=== PATIENT | male | born 1990 | race Two or more races ===

== ENCOUNTER 2024-10-06 12:59 | Inpatient (IN) | payer MEDICAID ==
[2024-10-06] MEDS: Thiamine 100 MG in Sodium Chloride 0.9% 1,000 ML IV ONE (13:50)
[2024-10-06 14:00] LABS: BASOPHILS PERCENT AUTO 0.6 % (0.0-1.0); EOSINOPHILS PERCENT AUTO 1.4 % (1.0-3.0); LYMPHOCYTES PERCENT AUTO 21.5 % (20.5-50.1); MEAN CORPUSCULAR HEMOGLOBIN 31.2 pg (27.0-34.0); MEAN CORPUSCULAR HGB CONC 33.3 g/dL (33.0-35.0); MEAN CORPUSCULAR VOLUME 93.6 fL (80-100); MONOCYTES PERCENT AUTO 6.6 % (2-8); NEUTROPHILS PERCENT AUTO 69.9 % (42.2-75.2); PLATELET COUNT,PLT 260 10^3/uL (150-450); RED BLOOD CELL COUNT 5.77 10^6/uL (4.6-6.2)
[2024-10-06 14:17] LABS: A/G RATIO 0.8; ALBUMIN 4.1 g/dL (3.4-5.0); ANION GAP 16.1 mEq/L (7-13); BILIRUBIN TOTAL 0.8 mg/dL (0.2-1.0); BUN/CREATININE RATIO 8.1 (No establ ref range); CALCIUM 10.3 mg/dL (8.5-10.1); CREATININE 1.11 mg/dL (0.70-1.30); EST CRCL DRUG DOSING (CG) 99.87 mL/min; MAGNESIUM 1.7 mg/dL (1.8-2.4); POTASSIUM,K 4.1 mmol/L (3.5-5.1)
[2024-10-06 14:23] LABS: LACTIC ACID 2.1 mmol/L (0.4-2.0)
[2024-10-06] MEDS: Piperacillin/Tazobactam 3.375 GM in Sodium Chloride 0.9% 100 ML IV ONE (14:50)
[2024-10-06] MEDS: Iopamidol 612 MG/ML 100 ML Bottle IVPUSH ONE (14:56)
[2024-10-06] MEDS: Lactated Ringers 1,000 ML IV SCH ×2 (15:25→16:27)
[2024-10-06] MEDS: fentaNYL 100 MCG/2 ML SDV IVPUSH ONE (16:31)
[2024-10-06] MEDS: Lidocaine 1% 30 ML SDV INJECT ONE (16:31)
[2024-10-06] MEDS: Ketorolac 30 MG/ML SDV IVPUSH ONE (16:31)
[2024-10-06] MEDS: chlordiazePOXIDE 25 MG Cap PO ONE ×2 (17:26→19:58)
[2024-10-06] MEDS ORDERED: Sodium Chloride 0.9% 500 ML IV SCH (18:15)
[2024-10-06] MEDS: Docusate Sodium 100 MG Cap PO SCH (19:00)
[2024-10-06 19:13] LABS: FOLIC ACID 6.4 ng/mL (8.6-58.9)
[2024-10-06] MEDS: MVI, Adult with Vitamin K 10 ML, Folic Acid 1 MG, Thiamine 100 MG in Lactated Ringers 1... IV ONE (19:54)
[2024-10-06] MEDS ORDERED: Piperacillin/Tazobactam 3.375 GM in Sodium Chloride 0.9% 100 ML IV SCH (20:00)
[2024-10-06] MEDS: Acetaminophen 325 MG Tab PO SCH (20:00)
[2024-10-06] MEDS: Divalproex Sodium 250 MG Tab.ER PO SCH (20:08)
[2024-10-06] MEDS: Sertraline 50 MG Tab PO SCH (20:08)
[2024-10-06 20:44] LABS: LACTIC ACID 2.3 mmol/L (0.4-2.0)
[2024-10-06] MEDS: VANCOmycin 1 GM in Sodium Chloride 0.9% 250 ML IV SCH (21:07)
[2024-10-06] MEDS: Piperacillin/Tazobactam 4.5 GM in Sodium Chloride 0.9% 100 ML IV SCH (21:33)
[2024-10-06] MEDS: Heparin Sodium 5,000 Units/ML Vial SUBCUT SCH (22:35)
[2024-10-06] MEDS: VANCOmycin 2 GM in Sodium Chloride 0.9% 500 ML IV SCH (23:54)
[2024-10-06] MEDS: Magnesium Sulfate 2 GM/50 mL 2 GM in Premix Bag 1 BAG IV ONE (23:56)
[2024-10-07] MEDS: chlordiazePOXIDE 25 MG Cap PO SCH (01:38)
[2024-10-07] MEDS: Piperacillin/Tazobactam 4.5 GM in Sodium Chloride 0.9% 100 ML IV SCH (05:50)
[2024-10-07 06:50] LABS: BASOPHILS PERCENT AUTO 0.7 % (0.0-1.0); EOSINOPHILS PERCENT AUTO 2.1 % (1.0-3.0); HEMATOCRIT 45.3 % (40.0-54.0); HEMOGLOBIN 14.8 g/dL (14.0-18.0); MEAN CORPUSCULAR HEMOGLOBIN 30.9 pg (27.0-34.0); MEAN CORPUSCULAR HGB CONC 32.7 g/dL (33.0-35.0); MEAN CORPUSCULAR VOLUME 94.6 fL (80-100); MONOCYTES PERCENT AUTO 10.6 % (2-8); NEUTROPHILS PERCENT AUTO 66.6 % (42.2-75.2); PLATELET COUNT,PLT 203 10^3/uL (150-450); RED BLOOD CELL COUNT 4.79 10^6/uL (4.6-6.2); WHITE BLOOD CELL COUNT,WBC 10.3 10^3/uL (5.0-10.0)
[2024-10-07 07:15] LABS: ANION GAP 13.2 mEq/L (7-13); CALCIUM 8.7 mg/dL (8.5-10.1); CREATININE 0.83 mg/dL (0.70-1.30); EST CRCL DRUG DOSING (CG) 133.56 mL/min; MAGNESIUM 2.1 mg/dL (1.8-2.4); POTASSIUM,K 4.2 mmol/L (3.5-5.1)
[2024-10-07] MEDS: LORazepam 2 MG/ML SDV IVPUSH PRN (08:15)
[2024-10-07] MEDS: Magnesium Oxide 400 MG Tab PO SCH (08:21)
[2024-10-07 09:01] LABS: LACTIC ACID 1.5 mmol/L (0.4-2.0)
[2024-10-07] MEDS: PALIPERIDONE 6 MG PO SCH (10:29)
[2024-10-07] MEDS: ATOMOXETINE 100 MG PO SCH (10:31)
[2024-10-07] MEDS: VANCOmycin 2 GM in Sodium Chloride 0.9% 500 ML IV SCH (12:18)
[2024-10-08 06:56] LABS: BASOPHILS PERCENT AUTO 0.4 % (0.0-1.0); HEMATOCRIT 39.9 % (40.0-54.0); HEMOGLOBIN 13.5 g/dL (14.0-18.0); LYMPHOCYTES PERCENT AUTO 26.4 % (20.5-50.1); MEAN CORPUSCULAR HEMOGLOBIN 32.1 pg (27.0-34.0); MEAN CORPUSCULAR HGB CONC 33.8 g/dL (33.0-35.0); MEAN CORPUSCULAR VOLUME 94.8 fL (80-100); MONOCYTES PERCENT AUTO 8.9 % (2-8); NEUTROPHILS PERCENT AUTO 62.3 % (42.2-75.2); PLATELET COUNT,PLT 182 10^3/uL (150-450); RED BLOOD CELL COUNT 4.21 10^6/uL (4.6-6.2); WHITE BLOOD CELL COUNT,WBC 8.5 10^3/uL (5.0-10.0)
[2024-10-08 07:15] LABS: ANION GAP 13.4 mEq/L (7-13); CALCIUM 8.1 mg/dL (8.5-10.1); CREATININE 0.79 mg/dL (0.70-1.30); EST CRCL DRUG DOSING (CG) 140.33 mL/min; MAGNESIUM 1.8 mg/dL (1.8-2.4); POTASSIUM,K 3.4 mmol/L (3.5-5.1); VANCOMYCIN RANDOM 15.4 ug/mL (No Normal Range)
[2024-10-08] MEDS: Potassium Chloride 20 MEQ in Premix Bag 1 BAG IV ONE (11:20)
[2024-10-08] MEDS: Magnesium Sulfate 2 GM/50 mL 2 GM in Premix Bag 1 BAG IV ONE (11:25)
== END 2024-10-08 13:50 | disposition home or self-care (01) | DRG 872 ==
LOC: DL.ED 12:59 → DL.MS 17:07
PROVIDERS: ADMIT Internal Medicine; ATTEND Internal Medicine
PROC: 0H98XZZ Drainage of Buttock Skin, External Approach (ICD-10-PCS; principal; 2024-10-06)
PROC: 3E03329 Introduction of Other Anti-infective into Peripheral Vein, Percutaneous Approach (ICD-10-PCS; principal; 2024-10-06)
PROC: HZ2ZZZZ Detoxification Services for Substance Abuse Treatment (ICD-10-PCS; principal; 2024-10-06)
DX: A41.9 Sepsis, unspecified organism (principal); L05.01 Pilonidal cyst with abscess; F17.210 Nicotine dependence, cigarettes, uncomplicated; R65.20 Severe sepsis without septic shock; Z88.6 Allergy status to analgesic agent; Z88.5 Allergy status to narcotic agent; H54.7 Unspecified visual loss; L05.91 Pilonidal cyst without abscess; E78.00 Pure hypercholesterolemia, unspecified; F90.9 Attention-deficit hyperactivity disorder, unspecified type; F41.9 Anxiety disorder, unspecified; F31.9 Bipolar disorder, unspecified; F43.10 Post-traumatic stress disorder, unspecified; F20.9 Schizophrenia, unspecified; F12.90 Cannabis use, unspecified, uncomplicated; E86.0 Dehydration; F10.20 Alcohol dependence, uncomplicated; E83.52 Hypercalcemia; E83.42 Hypomagnesemia; E78.5 Hyperlipidemia, unspecified; Z88.8 Allergy status to other drugs, medicaments and biological substances; Z72.0 Tobacco use; Z86.16 Personal history of COVID-19
CPT/HCPCS: 10060; 10080; 36415; 72193; 80053; 80307; 82607; 82746; 82977; 83605; 83735; 85025; 87040 ×2; 96361; 96365; 96367; 96375; 99285; J1885; J2003; J2543; J3010; J3411; J7120 ×2; Q9967; 80048; 80202; 87070; 87075; 87077; 87205; 99223; 99233; 99239; 99284; A9270-GY; J1644; J2060; J3475; J3480; J3490; J7040

== ENCOUNTER 2024-10-20 06:12 | Emergency (ER) | payer MEDICAID ==
[2024-10-20] MEDS: LORazepam 1 MG Tab PO ONE (06:37)
[2024-10-20] MEDS: Take Home: Acetaminophen/HYDROcodone 325-5 MG, 5 Tab Pack PO ONE (06:37)
[2024-10-20] MEDS: Take Home: Clindamycin HCl 150 MG, 12 Cap Pack PO ONE (06:37)
== END 2024-10-20 06:42 | disposition home or self-care (01) ==
LOC: DL.ED 06:12
DX: K08.89 Other specified disorders of teeth and supporting structures (principal); E66.9 Obesity, unspecified; Z88.8 Allergy status to other drugs, medicaments and biological substances; Z79.899 Other long term (current) drug therapy; Z86.16 Personal history of COVID-19
CPT/HCPCS: 99282; 99283; A9270-GY